=== PATIENT | female | born 1990 | race Hispanic/Latino ===

== ENCOUNTER → 2022-12-12 | Emergency (ER) | payer OTHER ==
[~2022-12-12] VITALS: Ht 160 cm; Wt 83.9 kg
[~2022-12-12] MED LIST: DONNATAL/LIDOCAINE/MAALOX 30 ML SUSP PO SCH; FAMOTIDINE 20 MG/2 ML VIAL IV ONE; IOPAMIDOL 370 MG/ML 100 ML INFUS..BTL INJ ONE; OMEPRAZOLE20 M1 PO; ONDANSETRON HCL INJ 2MG/ML 2ML 2 MG/ML VIAL IV ONE; ONDANSETRON ODT4 MG PO; SODIUM CHLORIDE 0.9% 1000ML 1,000 ML IV STA
[2022-12-12 14:47] LABS: BASOPHILS % 0.1 % (0.0-1.0); EOSINOPHILS % 0.2 % (0.0-6.0); HEMATOCRIT 41.9 % (34.2-44.1); HEMOGLOBIN 13.4 g/dL (12.0-16.0); LYMPHOCYTES # (AUTO) 0.6 (1.0-3.2); LYMPHOCYTES % 7.2 % (18.0-39.1); MEAN CORPUSCULAR HEMOGLOBIN 29.1 pg (28-32); MEAN CORPUSCULAR VOLUME 91.1 fL (81-99); MONOCYTES # (AUTO) 0.4 (0.2-0.8); MONOCYTES % 4.6 % (4.4-11.3); NEUTROPHILS # (AUTO) 7.6 (2.1-6.9); NEUTROPHILS % 87.7 % (38.7-80.0); PLATELET COUNT 286 x10e3/uL (140-360); RED CELL DISTRIBUTION WIDTH 12.6 % (11.7-14.4)
[2022-12-12 14:51] LABS: CLARITY,URINE TURBID (CLEAR); COLOR,URINE YELLOW (YELLOW); LEUKOCYTE ESTERASE ,URINE NEGATIVE (NEGATIVE); NITRITE,URINE NEGATIVE (NEGATIVE)
[2022-12-12 14:52] LABS: KETONES,URINE NEGATIVE (NEGATIVE); PROTEIN,URINE DIPSTICK TRACE (NEGATIVE); URINE UROBILINOGEN 0.2 mg/dL (0.2 - 1)
[2022-12-12 14:57] LABS: BACTERIA,URINE MODERATE /HPF; EPITHELIAL CELLS,URINE MODERATE /LPF; RBC,URINE 0-5 /HPF (0-5)
[2022-12-12 15:02] LABS: ALBUMIN 4.3 g/dL (3.5-5.0); ANION GAP 17.9 mmol/L (8-16); CREATININE, SERUM 0.62 mg/dL (0.57-1.11); POTASSIUM 3.9 mmol/L (3.5-5.1)
== END ==
LOC: ER 13:43
DX: R19.7 Diarrhea, unspecified (principal); K29.60 Other gastritis without bleeding
CPT/HCPCS: 36415; 74177; 80053; 81001; 81025; 83690; 85025; 99284; J2405; J7030; Q9967